=== PATIENT | female | born 1960 | race Caucasian/White ===

== ENCOUNTER 2024-02-20 13:39 | Emergency (ER) | payer MEDICAID ==
[~2024-02-20] VITALS: Ht 152.4 cm; Wt 63.6 kg
[2024-02-20] MEDS ORDERED: [UNRECOGNIZED DRUG - REMARK] PO (13:45)
[2024-02-20 13:47] VITALS: TEMP 98.2
[2024-02-20 15:50] VITALS: BP 115/60; PULSE 74; RESP 18; O2SAT 99
== END 2024-02-20 16:01 | disposition home or self-care (01) ==
LOC: EMS 13:39
DX: L02.414 Cutaneous abscess of left upper limb (principal); F17.210 Nicotine dependence, cigarettes, uncomplicated
CPT/HCPCS: 99281; Z7502